=== PATIENT | female | born 1975 | race African-American/Black ===

== ENCOUNTER 2019-06-25 14:49 | Emergency (ER) | payer MEDICAID ==
[~2019-06-25] VITALS: Ht 157.5 cm; Wt 86.4 kg
[2019-06-25 15:28] VITALS: Ht 157.5 cm; Wt 86.4 kg
[2019-06-25] MEDS ORDERED: SYNTHROID125 MCG PO (15:29)
[2019-06-25] MEDS ORDERED: LEVOXYL125 MCG PO (16:52)
[2019-06-25 17:01] VITALS: BP 120/83
== END 2019-06-25 17:01 | disposition home or self-care (01) ==
LOC: D.ER 14:49
DX: Z76.0 Encounter for issue of repeat prescription (principal)